=== PATIENT | female | born 1950 | race Caucasian/White ===

== ENCOUNTER 2017-06-17 11:54 | Observation (INO) | payer OTHER ==
[2017-06-17] MEDS ORDERED: APRESOLINE INJ 20 MG VIAL IVP PRN ×2 (12:52→14:56)
--- NOTE | 2017-06-17 12:59 | DR.H&P ---
H&P - History & Physical for Day of: H&P Date: 06/17/17 - Chief Complaint Chief Complaint: elevated bp, neck pain, dizziness - History of Present Illness History of Present Illness: Mrs. Norris is a 67-year-old white female who was a direct admit from Dr. Ortega's office after presenting with complaints of neck pain. On exam patient's blood pressure was noted to be 220/120. Patient complained of dizziness. Patient was given Catapres 0.1 in the office blood pressure repeat post outpatient treatment was 218/120, and 190/90. Patient had an EKG in the office which was abnormal. Patient admitted to the Hospital for Further Evaluation of Hypertensive Urgency and Abnormal EKG Plan to Obtain Serial Cardiac Enzymes and Chest X-Ray and Labs and Administer IV Hydralazine for Hypertension. Patient has a past medical history of osteoarthritis and indigestion otherwise stable. - Past Medical History Past Medical History: Arthritis, GERD - Past Surgical History Surgical History: Ortho Surgery - Social History Does patient currently use any type of tobacco product: No Have you used tobacco products in the last 12 months: No Type of Tobacco Use: None Does any household member use tobacco: No Alcohol Use: None Drug Use: None - Review of Systems Constitutional: Weakness, Other (fatigue) Eyes: No Symptoms Reported ENT: No Symptoms Reported Respiratory: No Symptoms Reported, SOB with Excertion Cardiovascular: Light Headedness Genitourinary: No Symptoms Reported Musculoskeletal: Neck Pain Skin: No Symptoms Reported Neurological: Other (dizziness) Oriented: Normal Eyes: Normal Ear: Normal Nose: Normal Throat: Normal Respiratory: Clear Throughout Cardiovascular: Normal. negative: Edema : Normal Auscultation: Bowel Sounds: Normal Palpation: Normal Skin: Normal Musculoskeletal: Tender Psychiatric: Anxiety Affect: Anxious Speech Pattern: Clear, Appropriate - Assessment/Plan (1) Hypertensive urgency Status: Acute Plan: admit SERIAL EKG'S CARDIAC ENZYMES CXR ON ADMISSION. TREAT HYPERTENSION WITH LISINOPRIL AND IV HYDRALAZINE (2) Neck pain Status: Acute Plan: CT NECK , PAIN CONTROL (3) Dizziness Status: Acute Plan: BP CONTROL. CAROTID ARTERIES (4) Abnormal EKG Status: Acute
[2017-06-17] MEDS ORDERED: LIBRIUM PO PRN (13:11)
[2017-06-17 15:00] LABS: BASOPHILS # (AUTO) 0.1 X10^3/uL (0.0-0.1); BASOPHILS % (AUTO) 1.2 % (0.2-1.0); EOSINOPHILS # (AUTO) 0.3 x10^3/uL (0.0-0.2); EOSINOPHILS % (AUTO) 3.9 % (0.9-2.9); HEMATOCRIT 34.6 % (36.0-47.0); HEMOGLOBIN 11.8 g/dL (12.0-16.0); LYMPHOCYTES # (AUTO) 1.6 X10^3/uL (1.3-2.9); LYMPHOCYTES % (AUTO) 22.2 % (21.0-51.0); MEAN CORPUSCULAR HGB CONC 34.1 g/dL (33.0-35.0); MEAN CORPUSCULAR VOLUME 87.8 fL (80.0-100.0); MEAN PLATELET VOLUME 8.1 fL (7.4-11.0); MONOCYTES # (AUTO) 0.5 x10^3/uL (0.3-0.8); MONOCYTES % (AUTO) 7.3 % (0.0-13.0); NEUTROPHILS # (AUTO) 4.7 x10^3/uL (2.2-4.8); NEUTROPHILS % (AUTO) 65.4 % (42.0-75.0); PLATELET COUNT 262 X10^3/uL (150.0-450.0); RED BLOOD COUNT 3.94 X10^6/uL (3.5-5.4); RED CELL DISTRIBUTION WIDTH 13.5 % (11.6-16.5); WHITE BLOOD COUNT 7.3 X10^3/uL (3.6-10.0)
[2017-06-17 15:11] LABS: ALANINE AMINOTRANSFERASE 22 Units/L (12-78); ALBUMIN 3.7 g/dL (3.4-5.0); ALKALINE PHOSPHATASE 68 Units/L (46-116); ASPARTATE AMINO TRANSFERASE 24 Units/L (15-37); BLOOD UREA NITROGEN 14 mg/dL (7-18); CALCIUM 9.2 mg/dL (8.5-10.1); CARBON DIOXIDE 31.9 mmol/L (21-32); CHLORIDE 106 mmol/L (98-107); GLUCOSE 91 mg/dL (65-99); SODIUM 142 mmol/L (136-145); TOTAL PROTEIN 7.2 g/dL (6.4-8.2); eGFR BLACK RACES > 60 (>60); eGFR NON BLACK RACES > 60 (>60)
[2017-06-17] MEDS: ZESTRIL TAB 10 MG PO SCH (15:17)
[2017-06-17] MEDS ORDERED: NITROSTAT SL PRN (15:20)
[2017-06-17 15:32] LABS: CKMB % 1.3 % (<4); CREATINE KINASE 75 Units/L (26-192); CREATINE KINASE MB < 1.0 ng/mL (0-4.0); TROPONIN I 0.05 ng/mL (0-1.5)
[2017-06-17] MEDS ORDERED: NS 100 ML IV 100 ML IV ONE (16:10)
--- NOTE | 2017-06-17 17:03 | RAD ---
HISTORY: Dizziness, hypertension urgency. Study: Portable chest. Comparison: None. Findings: The trachea is midline. The cardiac silhouette is mildly enlarged. No overt signs of failure. No ob vious focal consolidation, pleural effusion, or pneumothorax. Cervical hardware is tearing. The osseo us structures otherwise appear normal for age. IMPRESSION: No acute cardiopulmonary disease. Reported By:
[2017-06-17 17:21] VITALS: BMI 27.4
[2017-06-17] MEDS: PERCOCET TAB 5/325 MG PO PRN (19:10)
[2017-06-17 21:15] LABS: CKMB % 1.3 % (<4); CREATINE KINASE 75 Units/L (26-192); CREATINE KINASE MB < 1.0 ng/mL (0-4.0); TROPONIN I 0.07 ng/mL (0-1.5)
[2017-06-17] MEDS ORDERED: CATAPRES TAB 0.1 MG PO ONE (22:05)
[2017-06-17] MEDS ORDERED: NORVASC TAB 5 MG PO ONE (22:07)
[2017-06-18 03:26] LABS: CHOL/HDL RATIO 7.8 (0.0-5.0)
[2017-06-18 03:27] LABS: CKMB % 1.6 % (<4); CREATINE KINASE 62 Units/L (26-192); CREATINE KINASE MB < 1.0 ng/mL (0-4.0); TROPONIN I 0.07 ng/mL (0-1.5)
[2017-06-18 06:23] LABS: BILIRUBIN,URINE NEGATIVE (NEGATIVE); BLOOD/HEMOGLOBIN,URINE NEGATIVE (NEGATIVE); GLUCOSE, URINE NEGATIVE (NEGATIVE); KETONES,URINE NEGATIVE (NEGATIVE); LEUKOCYTE ESTERASE ,URINE NEGATIVE (NEGATIVE); NITRITES,URINE NEGATIVE (NEGATIVE); PROTEIN,URINE 1+ (NEGATIVE); UROBILINOGEN,URINE NORMAL (NORMAL)
[2017-06-18 06:36] LABS: AMORPHOUS SEDIMENT,UR TRACE /HPF (NEGATIVE); APPEARANCE,URINE CLEAR (CLEAR); BACTERIA,URINE NEGATIVE /HPF (NEGATIVE); COLOR,URINE YELLOW (YELLOW); MUCUS,URINE FEW /HPF (NEGATIVE); RBC,URINE NONE SEEN /HPF (NEGATIVE); SQUAMOUS EPITHELIAL CELL,UR RARE /HPF (NEGATIVE)
[2017-06-18] MEDS: ASPIRIN PO SCH (08:02)
[2017-06-18] MEDS: ZESTRIL TAB 10 MG PO SCH (08:03)
[2017-06-18] MEDS: PERCOCET TAB 5/325 MG PO PRN ×3 (08:03→21:55)
[2017-06-18] MEDS: CATAPRES TAB 0.1 MG PO SCH (08:03)
[2017-06-18] MEDS: PriLOSEC PO SCH (08:03)
[2017-06-18] MEDS: NORVASC TAB 5 MG PO SCH (08:03)
[2017-06-18] MEDS ORDERED: FLEXERIL TAB 10 MG PO PRN (09:26)
[2017-06-18] MEDS: NS 1000 ML 1,000 ML IV SCH ×2 (10:56→21:57)
[2017-06-18] MEDS: LIBRIUM PO PRN (10:57)
[2017-06-18] MEDS: ZOFRAN INJ 4 MG VIAL IVP PRN ×2 (10:57→21:08)
--- NOTE | 2017-06-18 12:05 | CT ---
CT ANGIOGRAPHY NECK CLINICAL HISTORY: COMPARISON: None. TECHNIQUE: Multiple axial CT images were obtained from the skull base to the aortic arch prior to an d following the administration of IV contrast and reformatted in the sagittal and coronal planes. Rot ating 3D and MIP reformats are submitted. FINDINGS: The take-off of the great vessels is conventional. The origins of the common carotid and ve rtebral arteries are patent. There is no evidence of dissection or high grade stenosis of the carotid or vertebral systems. Scattered areas of non flow limiting luminal irregularities secondary to ather osclerotic plaque within the bilateral ICAs. The vertebral arteries are codominant. The vertebral art eries terminate in a normal appearing basilar artery. The carotid bifurcations are normal in appearan ce. The soft tissues of the neck are within normal limits. The visualized lung apices are clear. Status p ost ACDF C5-C7 with interbody cages without evidence of hardware failure. Multilevel degenerative janie nge. At C2-C3: No significant central canal or neural foraminal stenosis. At C3-C4: Degenerative anterolisthesis with loss of disc space with significant bilateral uncovertebr al joint hypertrophy and spurring produces mild bilateral neural foraminal stenosis. Central disk ost eophyte narrows canal to approximately 9.2 mm At C4-C5: Central disk osteophyte narrows canal 9.7 mm. No significant neural foraminal stenosis. At C5-C6: Bony bridging narrows canal to 8.3 mm. Uncovertebral joint hypertrophy produces mild bilate ral neural foraminal stenosis. At C6-C7: Bony bridging narrow central canal to 8.8 mm. No significant neural foraminal stenosis. At C7-T1: No significant central canal or neural foraminal stenosis. IMPRESSION: 1. No dissection, complete occlusion, aneurysm, vascular malformation or high grade stenosis of the c arotid or vertebral systems. 2. Multilevel degenerative change of the cervical spine with ACDF C5-C7 present. Reported By:
--- NOTE | 2017-06-18 13:42 | PCM.PROG ---
Progress Note - Progress Note for Day of Date: 06/18/17 - Subjective Subjective: Mrs. Norris is a 67-yeated one day ago with hypertensive urgency and abnormal EKG.. Patient received seri cardiac enzymes and EKgs, with blood pressure treatment EKG improved, LVH induced ekg changes. pt started on lisinopril and norvasc po, which she has tolerated well. pt MRI of c spine and cta of her carotids which revealed multi-disk degenerative changes. Pt to continue bp control, repeat am labs, pain control - Past Medical Family Social History Past Med/Fam/Surg Hx: No changes since H&P Allergies: Allergies codeine Adverse Reaction (Verified 06/17/17 14:01) - Review of Systems ROS: No change since H&P - Vital Signs and I&O's Vital Signs: Temperature 97.6 F Pulse Rate [Right Brachial] 81 Pulse Rate [Left Brachial] 77 Respiratory Rate 18 Blood Pressure [Right Arm] 136/64 Blood Pressure [Left Arm] 136/63 O2 Sat by Pulse Oximetry 100 Intake and Output: Intake & Output 06/16/17 06/17/17 06/18/17 06/19/17 11:59 11:59 11:59 11:59 Intake Total 390 Output Total 200 Balance 190 - Physical Exam Oriented: Normal Eyes: Normal Ear: Normal Nose: Normal Throat: Normal Cardiovascular: Normal. negative: Edema : Normal Auscultation: Bowel Sounds: Normal Tenderness: Normal Skin: Normal Musculoskeletal: Back:Thoracic, Back:Lumbar, Tender (c spine) Psychiatric: Anxiety Affect: Anxious Speech Pattern: Clear, Appropriate - Laboratory and Diagnostics Result Diagrams: 06/17/17 14:49 06/17/17 14:49 Labs: Laboratory WBC 7.3 X10^3/uL (3.6-10.0) 06/17/17 14:49 RBC 3.94 X10^6/uL (3.5-5.4) 06/17/17 14:49 Hgb 11.8 g/dL (12.0-16.0) L 06/17/17 14:49 Hct 34.6 % (36.0-47.0) L 06/17/17 14:49 MCV 87.8 fL (80.0-100.0) 06/17/17 14:49 MCH 30.0 pg (27.0-34.0) 06/17/17 14:49 MCHC 34.1 g/dL (33.0-35.0) 06/17/17 14:49 RDW 13.5 % (11.6-16.5) 06/17/17 14:49 Plt Count 262 X10^3/uL (150.0-450.0) 06/17/17 14:49 MPV 8.1 fL (7.4-11.0) 06/17/17 14:49 Neut % 65.4 % (42.0-75.0) 06/17/17 14:49 Lymph % 22.2 % (21.0-51.0) 06/17/17 14:49 [place] % 7.3 % (0.0-13.0) 06/17/17 14:49 Eos % 3.9 % (0.9-2.9) H 06/17/17 14:49 Baso % 1.2 % (0.2-1.0) H 06/17/17 14:49 Neut # 4.7 x10^3/uL (2.2-4.8) 06/17/17 14:49 Lymph # 1.6 X10^3/uL (1.3-2.9) 06/17/17 14:49 [place] # 0.5 x10^3/uL (0.3-0.8) 06/17/17 14:49 Eos # 0.3 x10^3/uL (0.0-0.2) H 06/17/17 14:49 Baso # 0.1 X10^3/uL (0.0-0.1) 06/17/17 14:49 Absolute Nucleated RBC 0.0 /100WBC 06/17/17 14:49 INR Target Range - 06/17/17 14:49 INR 1.02 (0.8-1.3) 06/17/17 14:49 PTT 34.2 SECONDS (22.9-36.5) 06/17/17 14:49 PTT Comment - 06/17/17 14:49 Sodium 142 mmol/L (136-145) 06/17/17 14:49 Corrected Sodium TNP 06/17/17 14:49 Potassium 3.7 mmol/L (3.5-5.1) 06/17/17 14:49 Chloride 106 mmol/L (98-107) 06/17/17 14:49 Carbon Dioxide 31.9 mmol/L (21-32) 06/17/17 14:49 BUN 14 mg/dL (7-18) 06/17/17 14:49 Creatinine 0.70 mg/dL (0.55-1.02) 06/17/17 14:49 Est GFR (MDRD) Af Amer > 60 (>60) 06/17/17 14:49 Est GFR (MDRD) Non-Af > 60 (>60) 06/17/17 14:49 Glucose 91 mg/dL (65-99) 06/17/17 14:49 Calcium 9.2 mg/dL (8.5-10.1) 06/17/17 14:49 Corrected Calcium TNP 06/17/17 14:49 Magnesium 2.2 mg/dL (1.7-2.9) 06/17/17 14:54 Total Bilirubin 0.30 mg/dL (0.2-1.0) 06/17/17 14:49 AST 24 Units/L (15-37) 06/17/17 14:49 ALT 22 Units/L (12-78) 06/17/17 14:49 Alkaline Phosphatase 68 Units/L (46-116) 06/17/17 14:49 Creatine Kinase 62 Units/L (26-192) 06/18/17 02:45 CK-MB (CK-2) < 1.0 ng/mL (0-4.0) 06/18/17 02:45 CK/CKMB % Calc 1.6 % (<4) 06/18/17 02:45 Troponin I 0.07 ng/mL (0-1.5) 06/18/17 02:45 Total Protein 7.2 g/dL (6.4-8.2) 06/17/17 14:49 Albumin 3.7 g/dL (3.4-5.0) 06/17/17 14:49 Globulin 3.5 g/dL (2.5-4.5) 06/17/17 14:49 Albumin/Globulin Ratio 1.1 Ratio (1.1-2.1) 06/17/17 14:49 Triglycerides 101 mg/dL (0-150) 06/18/17 02:45 Cholesterol 243 mg/dL (0-200) H 06/18/17 02:45 LDL Cholesterol, Calc 192 mg/dL (0-100) H 06/18/17 02:45 HDL Cholesterol 31 mg/dL (40-60) L 06/18/17 02:45 Cholesterol/HDL Ratio 7.8 (0.0-5.0) H 06/18/17 02:45 Specimen Type Clean catch urine 06/18/17 05:59 Urine Color Yellow (YELLOW) 06/18/17 05:59 Urine Appearance Clear (CLEAR) 06/18/17 05:59 Urine pH 7.0 (5.0 - 8.0) 06/18/17 05:59 Ur Specific [place] 1.010 (1.000-1.030) 06/18/17 05:59 Urine Protein 1+ (NEGATIVE) 06/18/17 05:59 Urine Glucose (UA) Negative (NEGATIVE) 06/18/17 05:59 Urine Ketones Negative (NEGATIVE) 06/18/17 05:59 Urine Occult Blood Negative (NEGATIVE) 06/18/17 05:59 Urine Nitrite Negative (NEGATIVE) 06/18/17 05:59 Urine Bilirubin Negative (NEGATIVE) 06/18/17 05:59 Urine Urobilinogen Normal (NORMAL) 06/18/17 05:59 Ur Leukocyte Esterase Negative (NEGATIVE) 06/18/17 05:59 Urine RBC None seen /HPF (NEGATIVE) 06/18/17 05:59 Urine WBC None seen /HPF (NEGATIVE) 06/18/17 05:59 Ur Squamous Epith Cells Rare /HPF (NEGATIVE) 06/18/17 05:59 Amorphous Sediment Trace /HPF (NEGATIVE) 06/18/17 05:59 Urine Bacteria Negative /HPF (NEGATIVE) 06/18/17 05:59 Urine Mucus Few /HPF (NEGATIVE) 06/18/17 05:59 Ur Culture Indicated? No/not indicated 06/18/17 05:59 - Plan (1) Hypertensive urgency Status: Acute Plan: SERIAL EKG'S CARDIAC ENZYMES CXR ON ADMISSION,. TREAT HYPERTENSION WITH LISINOPRIL, NORVASC AND IV HYDRALAZINE (2) Neck pain Status: Acute Plan: CT NECK , PAIN CONTROL (3) Dizziness Status: Acute Plan: BP CONTROL. CAROTID ARTERIES CTA WITH SIGNIFICANT STENOSIS. WILL CONTINUE BP MONITORING AND LIPID CONTROL (4) Abnormal EKG Status: Acute Plan: SEE ABOVE. DISCUSSED BP CONTROL AND OUTPT STRESS TEST AND ECHO
[2017-06-18] MEDS: CRESTOR TAB 10 MG PO SCH ×2 (13:54→21:55)
[2017-06-19] MEDS: NS 1000 ML 1,000 ML IV SCH (03:15)
[2017-06-19 05:19] LABS: BASOPHILS # (AUTO) 0.1 X10^3/uL (0.0-0.1); BASOPHILS % (AUTO) 1.1 % (0.2-1.0); EOSINOPHILS # (AUTO) 0.2 x10^3/uL (0.0-0.2); EOSINOPHILS % (AUTO) 2.8 % (0.9-2.9); HEMATOCRIT 32.9 % (36.0-47.0); HEMOGLOBIN 11.1 g/dL (12.0-16.0); LYMPHOCYTES # (AUTO) 1.8 X10^3/uL (1.3-2.9); LYMPHOCYTES % (AUTO) 21.6 % (21.0-51.0); MEAN CORPUSCULAR HGB CONC 33.9 g/dL (33.0-35.0); MEAN CORPUSCULAR VOLUME 88.5 fL (80.0-100.0); MEAN PLATELET VOLUME 8.3 fL (7.4-11.0); MONOCYTES # (AUTO) 0.6 x10^3/uL (0.3-0.8); MONOCYTES % (AUTO) 6.7 % (0.0-13.0); NEUTROPHILS # (AUTO) 5.7 x10^3/uL (2.2-4.8); NEUTROPHILS % (AUTO) 67.8 % (42.0-75.0); PLATELET COUNT 266 X10^3/uL (150.0-450.0); RED BLOOD COUNT 3.71 X10^6/uL (3.5-5.4); RED CELL DISTRIBUTION WIDTH 13.7 % (11.6-16.5); WHITE BLOOD COUNT 8.3 X10^3/uL (3.6-10.0)
[2017-06-19 05:25] LABS: ALANINE AMINOTRANSFERASE 18 Units/L (12-78); ALBUMIN 3.1 g/dL (3.4-5.0); ALKALINE PHOSPHATASE 60 Units/L (46-116); ASPARTATE AMINO TRANSFERASE 20 Units/L (15-37); BLOOD UREA NITROGEN 12 mg/dL (7-18); CALCIUM 8.7 mg/dL (8.5-10.1); CARBON DIOXIDE 30.7 mmol/L (21-32); CHLORIDE 108 mmol/L (98-107); COR CA(FOR HYPOALB) 9.4 mg/dL (8.5-10.1); CREATININE 0.79 mg/dL (0.55-1.02); GLUCOSE 99 mg/dL (65-99); SODIUM 142 mmol/L (136-145); TOTAL PROTEIN 6.5 g/dL (6.4-8.2); eGFR BLACK RACES > 60 (>60); eGFR NON BLACK RACES > 60 (>60)
[2017-06-19] MEDS ORDERED: NS 100 ML IV 100 ML IV ONE (05:59)
[2017-06-19] MEDS: ASPIRIN PO SCH (09:19)
[2017-06-19] MEDS: CATAPRES TAB 0.1 MG PO SCH (09:20)
[2017-06-19] MEDS: ZESTRIL TAB 10 MG PO SCH (09:20)
[2017-06-19] MEDS: PriLOSEC PO SCH (09:20)
[2017-06-19] MEDS: NORVASC TAB 5 MG PO SCH (09:20)
[2017-06-19] MEDS: LIBRIUM PO PRN (09:24)
[2017-06-19 09:42] LABS: CKMB % 1.7 % (<4); CREATINE KINASE MB 1.3 ng/mL (0-4.0); TROPONIN I 0.06 ng/mL (0-1.5)
[2017-06-19 16:15] VITALS: BP 139/65
[2017-06-19] MEDS ORDERED: ZESTRIL TAB 10 MG PO SCH (21:00)
== END 2017-06-19 18:10 | disposition short-term general hospital (02) ==
LOC: MED/SURG 11:54 → UNDOADMOB 11:54 → MED/SURG 13:24
PROVIDERS: ADMIT Internal Medicine; ATTEND Internal Medicine
DX: I16.0 Hypertensive urgency (principal); R94.31 Abnormal electrocardiogram [ECG] [EKG]; R42 Dizziness and giddiness; R07.89 Other chest pain; M54.2 Cervicalgia; M13.89 Other specified arthritis, multiple sites; K21.9 Gastro-esophageal reflux disease without esophagitis; D64.89 Other specified anemias
CPT/HCPCS: 36415; 70498; 71010; 72141; 74175; 80053; 80061; 81001; 82550; 82553; 83735; 84484; 85025; 85610; 85730; 93005; 93010; 94760; A4216; A4222; G0378; J0360; J2405